=== PATIENT | female | born 1975 | race Caucasian/White ===

== ENCOUNTER 2017-09-05 08:40 | Outpatient (CLI) | payer MEDICAID ==
--- NOTE | 2017-09-05 12:01 | Ultrasound Report ---
LEFT BREAST ULTRASOUND: 09/05/2017 CLINICAL INDICATION: Palpable abnormality left axillary tail. TECHNIQUE: Real-time scanning was performed with textiles sales representative static images obtained. FINDINGS: Ultrasound of the palpable abnormality identified by the patient was performed. Unremarkable parenchymal lobules are seen. No discrete solid or cystic mass is identified. No sonographically suspicious findings are appreciated. IMPRESSION: NEGATIVE EXAMINATION. RECOMMENDATION: Routine annual screening unless otherwise clinically indicated. BIRADS CATEGORY 1 - NEGATIVE. TD: 09/05/2017 11:56
--- NOTE | 2017-09-05 12:11 | Mammography Report ---
DIAGNOSTIC BILATERAL MAMMOGRAM: 09/05/2017 CLINICAL INDICATION: Palpable abnormality left axillary tail. TECHNIQUE: Bilateral CC, MLO, laterally exaggerated CC views, left true lateral view. A marker was placed at the site of palpable abnormality identified by the patient in the left axillary tail. FINDINGS: This is the patient's baseline mammogram. The breasts demonstrate heterogeneously dense fibroglandular parenchyma bilaterally. A few punctate, typically benign calcifications are present. No suspicious masses, clustered microcalcifications, or regions of architectural distortion are identified. Specifically, no mammographic abnormality is appreciated in the axillary tail of the left breast, at the site indicated by the marker. Please also refer to left breast ultrasound of the same day. IMPRESSION: BENIGN FINDINGS. RECOMMENDATION: Routine annual screening unless otherwise clinically indicated. BIRADS CATEGORY 2 - Benign findings. STANDARD QUALIFYING STATEMENTS: 1. This examination was reviewed with the aid of Computer-Aided Detection (CAD). 2. A negative or benign imaging report should not delay biopsy if clinically suspicious findings are present. Consider surgical consultation if warranted. More than 5% of cancers are not identified by imaging. 3. Dense breasts may obscure an underlying neoplasm. TD: 09/05/2017 12:06
== END 2017-09-05 08:41 | disposition home or self-care (01) ==
LOC: DI 08:40
PROVIDERS: ATTEND Nurse Practitioner Family
DX: N63.32 Unspecified lump in axillary tail of the left breast (principal)
CPT/HCPCS: 76642; 77066